=== PATIENT | male | born 1955 | race Caucasian/White ===

== ENCOUNTER 2016-11-07 15:38 | Emergency (ER) | payer BC, OTHER ==
[~2016-11-07] VITALS: Ht 182.9 cm; Wt 107.3 kg
[2016-11-07 15:38] VITALS: Ht 182.9 cm; Wt 107.3 kg
[~2016-11-07 15:38] MED LIST: TELM40TA4 PO
--- OUTSIDE RECORDS SUMMARY | 2016-11-07 15:43 | XMS REPORT | Continuity of Care Document ---
Author Author [facility] Organization [facility] Address Unknown Phone Unavailable Allergies Active Description Code Type Severity Reaction Onset Reported/Identified Relationship to Patient Clinical Status Yes No Known Medication Allergies NKMA N/A N/A 05/12/2014 Medications Problems Procedures Results Test Result Range Basic Metabolic Panel (BMP) - 11/02/16 13:37 Anion Gap 9 mEq/L 3-20 BUN 14 mg/dL 8-26 Calcium 9.5 mg/dL 8.4-10.2 Chloride 106 mEq/L 99-111 CO2 25 mEq/L 23-31 Creatinine 0.91 mg/dL 0.72-1.25 Glucose 95 mg/dL 70-99 Potassium 4.3 mEq/L 3.5-5.2 Sodium 140 mEq/L 135-144 eGFR - 11/02/16 13:37 eGFR >60 mL/min >60 Hemoglobin A1C - 11/02/16 13:37 Hemoglobin A1C 6.5 % 4.1-5.6 Estimated Average Glucose - 11/02/16 13:37 Estimated Average Glucose 139.9 mg/dL Albumin Random Urine - 11/02/16 14:36 Albumin Random Urine <0.5 mg/dL 0.0-1.7 Encounters ACCT No. Visit Date/Time Discharge Status Pt. Type Provider Facility Loc./Unit Complaint [id number] 04/22/2013 15:20:00 04/22/2013 23 :59:59 CLS Outpatient
--- OUTSIDE RECORDS SUMMARY | 2016-11-07 15:43 | XMS REPORT | Referral Summary ---
Author Author [facility] Organization [facility] Address Unknown Phone Unavailable Care Team Providers Care Glue Specialty Supervisor Name Role Phone Piotr Lincoln Primary Care Physician [phone] Encounter Date(s): 11/10/14 - 11/10/14 [facility] [address] [place] [address] JUSTIN Luciano [id number] Discharge Diagnosis: Prostatic nodule Discharge Diagnosis: Family history of prostate cancer Discharge Disposition: 01-Home or Self Care Attending Physician: Navneet Hussein JR, MD Admitting Physician: Navneet Hussein JR, MD Vital Signs Most recent to 1 oldest [Reference Range]: Peripheral Pulse 78 bpm Rate [60-100 bpm] (11/10/14 3:48 PM) Blood Pressure 126/82 mmHg [90-140/60-90 mmHg] (11/10/14 3:48 PM) SpO2 97 % (11/10/14 3:48 PM) Problem List Condition Effective Dates Status Health Status Informant Diabetes(Confirmed) Active Hypertension(Confirm Active ed) Measles(Confirmed) Active Mumps(Confirmed) Active Sugar in Active urine(Confirmed) Allergies, Adverse Reactions, Alerts No Known Medication Allergies Medications finasteride 5 mg oral tablet See Instructions, TAKE ONE TABLET BY MOUTH EVERY NIGHT AT BEDTIME, # 90 tabs, 2 Refill(s), eRx: [facility] #[id number], TAKE ONE TABLET BY MOUTH EVERY NIGHT AT BEDTIME Start Date: 06/16/14 Status: Ordered lisinopril 10 mg oral tablet See Instructions, TAKE ONE TABLET BY MOUTH DAILY, # 90 tabs, 2 Refill(s), eRx: [facility] #[id number], TAKE ONE TABLET BY MOUTH DAILY Start Date: 11/17/14 Status: Ordered metFORMIN 500 mg oral tablet See Instructions, TAKE ONE TABLET BY MOUTH TWICE A DAY NEEDS APPT PRIOR TO ADDITIONAL REFILLS, # 60 tabs, 0 Refill(s), Pharmacy: [facility] #[id number], TAKE ONE TABLET BY MOUTH TWICE A DAY; NEEDS APPT PRIOR TO ADDITIONAL REFILLS Start Date: 04/27/15 Status: Ordered Zocor 20 mg oral tablet See Instructions, TAKE ONE TABLET BY MOUTH EVERY NIGHT AT BEDTIME, # 90 tabs, 1 Refill(s), eRx: [facility] #[id number], TAKE ONE TABLET BY MOUTH EVERY NIGHT AT BEDTIME Start Date: 11/17/14 Status: Ordered Results No data available for this section Immunizations Vaccine Date Refusal Reason tetanus/diphth/pertuss (Tdap) adult/adol 09/25/07 Procedures Procedure Date Related Diagnosis Body Site Cystoscopy 08/19/09 Transneedle Biopsy of prostate 08/19/09 Colonoscopy with polypectomy1 11/08/07 1Repeat in 10 years Social History Social History Type Response Smoking Status Never smoker Assessment and Plan Extracted from: Title: Ambulatory Patient Education Author: Navneet Hussein JR, MD Date : 11/10/14 Follow Up With: Where: When: Claus Pinzonens [address] [place] [address] Drive; [place] [address] Business (1) Within 3 to 5 days Comments: Follow Up With: Where: When: Navneet Sanjay[address]; [place] [address] Business (1) In 6 months 05/13/2015 Comments: Extracted from: Title: Office Visit Note Author: Navneet Hussein JR, MD Date: 11/10/14 Assessment/Plan Prostatic nodule Pt advised of the new nodule in the prostate. Will continue observation. Father diagnosed with prostate cancer. Recheck in my office and since 6 months, PSA a week before next visit. Continue finasteride.. He may need prostate biopsy. He had many questions which I answered regarding his concerns over the nodule, family history etc. This was a 30 minute face to face visit with 1/2 of the visit devoted to counseling the patient. Ordered: Office Visit Level 4 Est 23043
--- OUTSIDE RECORDS SUMMARY | 2016-11-07 15:43 | XMS REPORT | Referral Summary ---
Author Author [facility] Organization [facility] Address Unknown Phone Unavailable Care Team Providers Care Project Administrative Assistant Name Role Phone Piotr Lincoln Primary Care Physician [phone] Encounter Date(s): 11/10/14 - 11/10/14 [facility] [address] [place] [address] JUSTIN Luciano [id number] Discharge Diagnosis: Prostatic nodule Discharge Diagnosis: Family [...] BEDTIME, # 90 tabs, 2 Refill(s), eRx: [facility] #[id number], TAKE ONE TABLET BY MOUTH EVERY NIGHT AT BEDTIME Start Date: 06/16/14 Status: Ordered lisinopril 10 mg oral tablet See Instructions, TAKE ONE TABLET BY MOUTH DAILY, # 90 tabs, 2 Refill(s), eRx: [facility] #[id number], TAKE ONE TABLET BY MOUTH DAILY Start Date: 11/17/14 Status: Ordered metFORMIN 500 mg oral tablet See Instructions, TAKE ONE TABLET BY MOUTH TWICE A DAY NEEDS APPT PRIOR TO ADDITIONAL REFILLS, # 60 tabs, 0 Refill(s), Pharmacy: [facility] #[id number], TAKE ONE TABLET BY MOUTH TWICE A DAY; NEEDS APPT PRIOR TO ADDITIONAL REFILLS Start Date: 04/27/15 Status: Ordered Zocor 20 mg oral tablet See Instructions, TAKE ONE TABLET BY MOUTH EVERY NIGHT AT BEDTIME, # 90 tabs, 1 Refill(s), eRx: [facility] #[id number], TAKE ONE TABLET BY MOUTH EVERY NIGHT [...] Follow Up With: Where: When: Claus Pinzonens [address] [place] [address] Drive; [place] [address] Business (1) Within 3 to 5 days Comments: Follow Up With: Where: When: Navneet Sanjay[address]; [place] [address] Business (1) In 6 months [...] patient. Ordered: Office Visit Level 4 Est 11053
--- OUTSIDE RECORDS SUMMARY | 2016-11-07 15:43 | XMS REPORT | Referral Summary ---
Author Author [facility] Organization [facility] Address Unknown Phone Unavailable Care Team Providers Care Linking Machine Operator Name Role Phone Piotr Lincoln Primary Care Physician [phone] Encounter [facility] [id number] Date(s): 08/04/15 - 08/04/15 [facility], [address] JUSTIN Luciano [id number] Discharge Disposition: 01-Home or Self Care Attending Physician: Claus Lincoln MD Admitting Physician: Claus Lincoln MD Vital Signs Most recent to 1 oldest [Reference Range]: Blood Pressure 124/76 mmHg [90-140/60-90 mmHg] (08/04/15 3:58 PM) Problem List Condition Effective Dates Status Health Status Informant Diabetes(Confirmed) Active Hypertension(Confirm Active ed) Measles(Confirmed) Active Mumps(Confirmed) Active Sugar in Active urine(Confirmed) Allergies, Adverse Reactions, Alerts No Known Medication Allergies Medications Aspir 81 81 mg, Oral, Daily, 0 Refill(s) Start Date: 08/04/15 Status: Ordered finasteride 5 mg oral tablet See Instructions, TAKE ONE TABLET BY MOUTH DAILY, # 30 tabs, eRx: [facility] #[id number], TAKE ONE TABLET BY MOUTH DAILY Start Date: 07/27/15 Status: Ordered Invokamet 50 mg-1000 mg oral tablet 1 tabs, Oral, BID, # 60 tabs, 0 Refill(s), [facility][id number] Start Date: 08/04/15 Status: Ordered lisinopril 10 mg oral tablet See Instructions, TAKE ONE TABLET BY MOUTH DAILY, # 90 tabs, 2 Refill(s), eRx: [facility] #[id number], TAKE ONE TABLET BY MOUTH DAILY Start Date: 11/17/14 Status: Ordered metFORMIN 500 mg oral tablet See Instructions, TAKE ONE TABLET BY MOUTH TWICE A DAY MUST CALL MD FOR APPOINTMENT FOR LABS, # 60 tabs, eRx: [facility] #[id number], TAKE ONE TABLET BY MOUTH TWICE A DAY MUST CALL MD FOR APPOINTMENT FOR LABS Start Date: 08/03/15 Status: Ordered simvastatin 20 mg oral tablet See Instructions, TAKE ONE TABLET BY MOUTH EVERY NIGHT AT BEDTIME MUST CALL MD FOR APPOINTMENT FOR FURTHER REFILLS, # 30 tabs, eRx: [facility] #[id number] , TAKE ONE TABLET BY MOUTH EVERY NIGHT AT BEDTIME MUST CALL MD FOR APPOINTMENT FOR FURTHER... Start Date: 07/27/15 Status: Ordered Results No data available for this section Immunizations Vaccine Date Refusal Reason tetanus/diphth/pertuss (Tdap) adult/adol 09/25/07 Procedures Procedure Date Related Diagnosis Body Site Cystoscopy 08/19/09 Transneedle Biopsy of prostate 08/19/09 Colonoscopy with polypectomy1 11/08/07 1Repeat in 10 years Social History Social History Type Response Smoking Status Never smoker Assessment and Plan Extracted from: Title: Ambulatory Patient Education Author: Claus Lincoln MD Date: 08/04 Family Medicine How to Avoid Diabetes Problems You can do a lot to prevent or slow down diabetes problems. Following your diabetes plan and taking care of yourself can reduce your risk of serious or life-threatening complications. Below, you will find certain things you can do to prevent diabetes problems. MANAGE YOUR DIABETES Follow your health care provider's, nurse educator's, and dietitian's instructions for managing your diabetes. They will teach you the basics of diabetes care. They can help answer questions you may have. Learn about diabetes and make healthy choices regarding eating and physical activity. Monitor your blood glucose level regularly. Your health care provider will help you decide how often to check your blood glucose level depending on your treatment goals and how well you are meeting them. DO NOT USE NICOTINE Nicotine and diabetes are a dangerous combination. Nicotine raises your risk for diabetes problems. If you quit using nicotine, you will lower your risk for heart attack, stroke, nerve disease, and kidney disease. Your cholesterol and your blood pressure levels may improve. Your blood circulation will also improve. Do not use any tobacco products, including cigarettes, chewing tobacco , or electronic cigarettes. If you need help quitting, ask your health care provider. KEEP YOUR BLOOD PRESSURE UNDER CONTROL Keeping your blood pressure under control will help prevent damage to your eyes , kidneys, heart, and blood vessels. Blood pressure consists of two numbers. The top number should be below 120, and the bottom number should be below 80 ( 120/80). Keep your blood pressure as close to these numbers as you can. If you already have kidney disease, you may want even lower blood pressure to protect your kidneys. Talk to your health care provider to make sure that your blood pressure goal is right for your needs. Meal planning, medicines, and exercise can help you reach your blood pressure target. Have your blood pressure checked at every visit with your health care provider. KEEP YOUR CHOLESTEROL UNDER CONTROL Normal cholesterol levels will help prevent heart disease and stroke. These are the biggest health problems for people with diabetes. Keeping cholesterol levels under control can also help with blood flow. Have your cholesterol level checked at least once a year. Your health care provider may prescribe a medicine known as a statin. Statins lower your cholesterol. If you are not taking a statin, ask your health care provider if you should be. Meal planning, exercise, and medicines can help you reach your cholesterol targets. SCHEDULE AND KEEP YOUR ANNUAL PHYSICAL EXAMS AND EYE EXAMS Your health care provider will tell you how often he or she wants to see you depending on your plan of treatment. It is important that you keep these appointments so that possible problems can be identified early and complications can be avoided or treated. Every visit with your health care provider should include your weight, blood pressure, and an evaluation of your blood glucose control. Your hemoglobin A1c should be checked: At least twice a year if you are at your goal. Every 3 months if there are changes in treatment. If you are not meeting your goals. Your blood lipids should be checked yearly. You should also be checked yearly to see if you have protein in your urine (microalbumin). Schedule a dilated eye exam within 5 years of your diagnosis if you have type 1 diabetes, and then yearly. Schedule a dilated eye exam at diagnosis if you have type 2 diabetes, and then yearly. All exams thereafter can be extended to every 2 to 3 years if one or more exams have been normal. KEEP YOUR VACCINES CURRENT The flu vaccine is recommended yearly. The formula for the vaccine changes every year and needs to be updated for the best protection against current viruses. It is recommended that people with diabetes who are over 65 years old get the pneumonia vaccine. In some cases, two separate shots may be given. Ask your health care provider if your pneumonia vaccination is up-to-date. However, there are some instances where another vaccine is recommended. Check with your health care provider. TAKE CARE OF YOUR FEET Diabetes may cause you to have a poor blood supply (circulation) to your legs and feet. Because of this, the skin may be thinner, break easier, and heal more slowly. You also may have nerve damage in your legs and feet, causing decreased feeling. You may not notice minor injuries to your feet that could lead to serious problems or infections. Taking care of your feet is very important. Visual foot exams are performed at every routine medical visit. The exams check for cuts, injuries, or other problems with the feet. A comprehensive foot exam should be done yearly. This includes visual inspection as well as assessing foot pulses and testing for loss of sensation. You should also do the following: Inspect your feet daily for cuts, calluses, blisters, ingrown toenails, and signs of infection, such as redness, swelling, or pus. Wash and dry your feet thoroughly, especially between the toes. Avoid soaking your feet regularly in hot water baths. Moisturize dry skin with lotion, avoiding areas between your toes. Cut toenails straight across and file the edges. Avoid shoes that do not fit well or have areas that irritate your skin. Avoid going barefooted or wearing only socks. Your feet need protection. TAKE CARE OF YOUR TEETH People with poorly controlled diabetes are more likely to have gum (periodontal ) disease. These infections make diabetes harder to control. Periodontal diseases, if left untreated, can lead to tooth loss. Noel your teeth twice a day, floss, and see your dentist for checkups and cleaning every 6 months, or 2 times a year. ASK YOUR HEALTH CARE PROVIDER ABOUT TAKING ASPIRIN Taking aspirin daily is recommended to help prevent cardiovascular disease in people with and without diabetes. Ask your health care provider if this would benefit you and what dose he or she would recommend. DRINK RESPONSIBLY Moderate amounts of alcohol (less than 1 drink per day for adult women and less than 2 drinks per day for adult men) have a minimal effect on blood glucose if ingested with food. It is important to eat food with alcohol to avoid hypoglycemia. People should avoid alcohol if they have a history of alcohol abuse or dependence, if they are , and if they have liver disease, pancreatitis, advanced neuropathy, or severe hypertriglyceridemia. LESSEN STRESS Living with diabetes can be stressful. When you are under stress, your blood glucose may be affected in two ways: Stress hormones may cause your blood glucose to rise. You may be distracted from taking good care of yourself. It is a good idea to be aware of your stress level and make changes that are necessary to help you better manage challenging situations. Support groups, planned relaxation, a hobby you enjoy, meditation, healthy relationships, and exercise all work to lower your stress level. If your efforts do not seem to be helping, get help from your health care provider or a trained mental health professional. Document Released: 03/06/2012 Document Revised: 11/03/2014 Document Reviewed: [employer] Patient Information 2015 [employer]. This information is not intended to replace advice given to you by your health care provider. Make sure you discuss any questions you have with your health care provider. Preventive Medicine Managing Your High Blood Pressure Blood pressure is a measurement of how forceful your blood is pressing against the nolasco of the arteries. Arteries are muscular tubes within the circulatory system. Blood pressure does not stay the same. Blood pressure rises when you are active, excited, or nervous; and it lowers during sleep and relaxation. If the numbers measuring your blood pressure stay above normal most of the time, you are at risk for health problems. High blood pressure (hypertension) is a long-term (chronic) condition in which blood pressure is elevated. A blood pressure reading is recorded as two numbers, such as 120 over 80 (or 120 /80). The first, higher number is called the systolic pressure. It is a measure of the pressure in your arteries as the heart beats. The second, lower number is called the diastolic pressure. It is a measure of the pressure in your arteries as the heart relaxes between beats. Keeping your blood pressure in a normal range is important to your overall health and prevention of health problems, such as heart disease and stroke. When your blood pressure is uncontrolled, your heart has to work harder than normal. High blood pressure is a very common condition in adults because blood pressure tends to rise with age. Men and women are equally likely to have hypertension but at different times in life. Before age 45, men are more likely to have hypertension. After 65 years of age, women are more likely to have it. Hypertension is especially common in Americans. This condition often has no signs or symptoms. The cause of the condition is usually not known. Your caregiver can help you come up with a plan to keep your blood pressure in a normal, healthy range. BLOOD PRESSURE STAGES Blood pressure is classified into four stages: normal, prehypertension, stage 1 , and stage 2. Your blood pressure reading will be used to determine what type of treatment, if any, is necessary. Appropriate treatment options are tied to these four stages: Normal Systolic pressure (mm Hg): below 120. Diastolic pressure (mm Hg): below 80. Prehypertension Systolic pressure (mm Hg): 120 to 139. Diastolic pressure (mm Hg): 80 to 89. Stage1 Systolic pressure (mm Hg): 140 to 159. Diastolic pressure (mm Hg): 90 to 99. Stage2 Systolic pressure (mm Hg): 160 or above. Diastolic pressure (mm Hg): 100 or above. RISKS RELATED TO HIGH BLOOD PRESSURE Managing your blood pressure is an important responsibility. Uncontrolled high blood pressure can lead to: A heart attack. A stroke. A weakened blood vessel (aneurysm). Heart failure. Kidney damage. Eye damage. Metabolic syndrome. Memory and concentration problems. HOW TO MANAGE YOUR BLOOD PRESSURE Blood pressure can be managed effectively with lifestyle changes and medicines ( if needed). Your caregiver will help you come up with a plan to bring your blood pressure within a normal range. Your plan should include the following: Education Read all information provided by your caregivers about how to control blood pressure. Educate yourself on the latest guidelines and treatment recommendations. New research is always being done to further define the risks and treatments for high blood pressure. Lifestylechanges Control your weight. Avoid smoking. Stay physically active. Reduce the amount of salt in your diet. Reduce stress. Control any chronic conditions, such as high cholesterol or diabetes. Reduce your alcohol intake. Medicines Several medicines (antihypertensive medicines) are available, if needed, to bring blood pressure within a normal range. Communication Review all the medicines you take with your caregiver because there may be side effects or interactions. Talk with your caregiver about your diet, exercise habits, and other lifestyle factors that may be contributing to high blood pressure. See your caregiver regularly. Your caregiver can help you create and adjust your plan for managing high blood pressure. RECOMMENDATIONS FOR TREATMENT AND FOLLOW-UP The following recommendations are based on current guidelines for managing high blood pressure in non adults. Use these recommendations to identify the proper follow-up period or treatment option based on your blood pressure reading. You can discuss these options with your caregiver. Systolic pressure of 120 to 139 or diastolic pressure of 80 to 89: Follow up with your caregiver as directed. Systolic pressure of 140 to 160 or diastolic pressure of 90 to 100: Follow up with your caregiver within 2 months. Systolic pressure above 160 or diastolic pressure above 100: Follow up with your caregiver within 1 month. Systolic pressure above 180 or diastolic pressure above 110: Consider antihypertensive therapy; follow up with your caregiver within 1 week. Systolic pressure above 200 or diastolic pressure above 120: Begin antihypertensive therapy; follow up with your caregiver within 1 week. Document Released: 03/13/2013 Document Reviewed: 03/13/2013 [facility] Patient Information 2015 [employer]. This information is not intended to replace advice given to you by your health care provider. Make sure you discuss any questions you have with your health care provider. No follow up information was provided. Extracted from: Title: Office Visit Note Author: Claus Lincoln MD Date: 08/04/15 Assessment/Plan Diabetes Would like to increase the metformin to 1000mg bid and will add Invokana 50mg bid. He is check blood sugar more frequent. Also patient informed of the adverse effects of the new medications. Ordered: Office Visit Level 4 Est 18964 Hypertension Continue with the current medications. Ordered: Office Visit Level 4 Est [id number] Orders: canagliflozin-metFORMIN, 1 tabs, Oral, BID, # 60 tabs, 0 Refill(s), Pharmacy: [facility] #[id number] Hyperlipidemia controlled and with a low HDL which we can use Niacin.
--- OUTSIDE RECORDS SUMMARY | 2016-11-07 15:43 | XMS REPORT | Referral Summary ---
Author Author [facility] Organization [facility] Address Unknown Phone Unavailable Care Team Providers Care Welfare Manager Name Role Phone Piotr Lincoln Primary Care Physician [phone] Encounter Date(s): 11/10/14 - 11/10/14 [facility] [address] [place] [address] JUSTIN Luciano [id number] Discharge Diagnosis: Prostatic nodule Discharge Diagnosis: [...] BEDTIME, # 90 tabs, 2 Refill(s), eRx: [facility] #[id number], TAKE ONE TABLET BY MOUTH EVERY NIGHT AT BEDTIME Start Date: 06/16/14 Status: Ordered lisinopril 10 mg oral tablet See Instructions, TAKE ONE TABLET BY MOUTH DAILY, # 90 tabs, 2 Refill(s), eRx: [facility] #[id number], TAKE ONE TABLET BY MOUTH DAILY Start Date: 11/17/14 Status: Ordered metFORMIN 500 mg oral tablet See Instructions, TAKE ONE TABLET BY MOUTH TWICE A DAY NEEDS APPT PRIOR TO ADDITIONAL REFILLS, # 60 tabs, 0 Refill(s), Pharmacy: [facility] #[id number], TAKE ONE TABLET BY MOUTH TWICE A DAY; NEEDS APPT PRIOR TO ADDITIONAL REFILLS Start Date: 04/27/15 Status: Ordered Zocor 20 mg oral tablet See Instructions, TAKE ONE TABLET BY MOUTH EVERY NIGHT AT BEDTIME, # 90 tabs, 1 Refill(s), eRx: [facility] #[id number], TAKE ONE TABLET BY MOUTH EVERY NIGHT [...] Follow Up With: Where: When: Claus Pinzonens [address] [place] [address] Drive; [place] [address] Business (1) Within 3 to 5 days Comments: Follow Up With: Where: When: Navneet Sanjay[address]; [place] [address] Business (1) In 6 months [...] patient. Ordered: Office Visit Level 4 Est 80013
--- OUTSIDE RECORDS SUMMARY | 2016-11-07 15:43 | XMS REPORT | Referral Summary ---
Author Organization Unknown Address Unknown Phone Unavailable Care Team Providers Care Cook Camp Name Role Phone Piotr Lincoln Primary Care Physician [phone] Encounter VC Date(s): 08/12/14 - 08/12/14 [facility] [place], Family [address] [place] [address]- Discharge Diagnosis: Hyperlipidemia Discharge Diagnosis: FAMILY HISTORY OF MALIGNANT NEOPLASM OF PROSTATE Discharge Diagnosis: Diabetes Discharge Diagnosis: Metatarsalgia Discharge Diagnosis: Hypertension Discharge Disposition: Home or Self Care Attending Physician: Claus Lincoln MD Admitting Physician: Claus Lincoln MD Vital Signs Most recent to 1 oldest [Reference Range]: Blood Pressure 126/82 mmHg [90-140/60-90 mmHg] (08/12/14 1:57 PM) Problem List Condition Effective Dates Status Health Status Informant Diabetes(Confirmed) Active Hypertension(Confirm Active ed) Measles(Confirmed) Active Mumps(Confirmed) Active Sugar in Active urine(Confirmed) Allergies, Adverse Reactions, Alerts No Known Medication Allergies Medications finasteride 5 mg oral tablet See Instructions, TAKE ONE TABLET BY MOUTH EVERY NIGHT AT BEDTIME, # 90 tabs, 2 Refill(s), eRx: [facility] #[id number], TAKE ONE TABLET BY MOUTH EVERY NIGHT AT BEDTIME Special Instructions: TAKE ONE TABLET BY MOUTH EVERY NIGHT AT BEDTIME Start Date: 06/16/14 Status: Ordered lisinopril 10 mg oral tablet See Instructions, TAKE ONE TABLET BY MOUTH EVERY DAY, # 90 tabs, 0 Refill(s), [facility] #[id number], TAKE ONE TABLET BY MOUTH EVERY DAY Special Instructions: TAKE ONE TABLET BY MOUTH EVERY DAY Start Date: 05/12/14 Status: Ordered metFORMIN 500 mg oral tablet See Instructions, TAKE ONE TABLET BY MOUTH TWICE A DAY, # 60 tabs, 1 Refill(s), [facility]Rx: [facility] #[id number], TAKE ONE TABLET BY MOUTH TWICE A DAY Special Instructions: TAKE ONE TABLET BY MOUTH TWICE A DAY Start Date: 06/09/14 Status: Ordered Zocor 20 mg oral tablet 1 tabs, Oral, Bedtime (once a day), # 90 tabs, 0 Refill(s), Pharmacy: [facility] #[id number], 1 tabs Oral Bedtime (once a day) Start Date: 05/12/14 Status: Ordered Results Chemistry Most recent to 1 oldest [Reference Range]: Sodium Lvl [135-144 140 mEq/L mEq/L] (08/12/14 3:27 PM) Potassium Lvl 3.9 mEq/L [3.5-5.2 mEq/L] (08/12/14 3:27 PM) Chloride [99-111 107 mEq/L mEq/L] (08/12/14 3:27 PM) CO2 [23-31 mEq/L] 23 mEq/L (08/12/14 3:27 PM) AGAP [3-20] 10 (08/12/14 3:27 PM) BUN [8-26 mg/dL] 12 mg/dL (08/12/14 3:27 PM) Glucose Lvl [70-99 126 mg/dL mg/dL] *HI* (08/12/14 3:27 PM) Creatinine Lvl 0.90 mg/dL [0.72-1.25 mg/dL] (08/12/14 3:27 PM) eGFR [>60 mL/min] >60 mL/min 1 (08/12/14 3:27 PM) Calcium Lvl 9.9 mg/dL [8.9-10.5 mg/dL] (08/12/14 3:27 PM) Uric Acid [3.5-7.2 5.7 mg/dL mg/dL] (08/12/14 3:27 PM) PSA (wihout Reflex 2.0 ng/mL 2 Free) [0.0-4.5 (08/12/14 3:27 PM) ng/mL] Chol [0-199 mg/dL] 130 mg/dL (08/12/14 3:27 PM) Trig [0-149 mg/dL] 100 mg/dL (08/12/14 3:27 PM) HDL [40-84 mg/dL] 29 mg/dL *LOW* (08/12/14 3:27 PM) LDL [0-130 mg/dL] 81 mg/dL (08/12/14 3:27 PM) VLDL Cholesterol 20 mg/dL [0-28 mg/dL] (08/12/14 3:27 PM) Cardiac Risk 4.5 [0.0-5.7] (08/12/14 3:27 PM) Hgb A1c [4.1-5.6 %] 6.9 % *HI* (08/12/14 3:27 PM) eAvg Glucose 151.3 mg/dL (08/12/14 3:27 PM) 1Result Comment: Multiply eGFR results by 1.21 for race. 2Result Comment: [facility] PSA Best Practice Guidelines: Age-Adjusted PSA Values by Ethnic Group Age Range Asians - Caucasians Americans 40-49 0-2.0 0-2.0 0-2.5 50-59 0-3.0 0-4.0 0-3.5 60-69 0-4.0 0-4.5 0-4.5 70-79 0-5.0 0-5.5 0-6.5 Immunizations Vaccine Date Refusal Reason tetanus/diphth/pertuss (Tdap) adult/adol 09/25/07 Procedures Procedure Date Related Diagnosis Body Site Cystoscopy 08/19/09 Transneedle Biopsy of prostate 08/19/09 Colonoscopy with polypectomy1 11/08/07 1Repeat in 10 years Social History Social History Type Response Smoking Status Never smoker Assessment and Plan No data available for this section
--- OUTSIDE RECORDS SUMMARY | 2016-11-07 15:43 | XMS REPORT | Referral Summary ---
Author Author [facility] Organization [facility] Address Unknown Phone Unavailable Care Team Providers Care Ordnance Truck Installation Supervisor Name Role Phone Piotr Lincoln Primary Care Physician [phone] Encounter [facility] [id number] Date(s): 05/14/15 - 05/14/15 [facility] [address] [place] [address] JUSTIN Luciano [id number] Discharge Diagnosis: Prostatic nodule Discharge Diagnosis: BPH with obstruction/lower urinary tract symptoms Discharge Disposition: 01-Home or Self Care Attending Physician: Navneet Hussein JR, MD Admitting Physician: Navneet Hussein JR, MD Referring Physician: Claus Lincoln MD Vital Signs Most recent to 1 oldest [Reference Range]: Peripheral Pulse 83 bpm Rate [60-100 bpm] (05/14/15 2:59 PM) Blood Pressure 108/62 mmHg [90-140/60-90 mmHg] (05/14/15 2:59 PM) Problem List Condition Effective Dates Status Health Status Informant Diabetes(Confirmed) Active Hypertension(Confirm Active ed) Measles(Confirmed) Active Mumps(Confirmed) Active Sugar in Active urine(Confirmed) Allergies, Adverse Reactions, Alerts No Known Medication Allergies Medications finasteride 5 mg oral tablet See Instructions, TAKE ONE TABLET BY MOUTH DAILY, # 30 tabs, eRx: [facility] #[id number], TAKE ONE TABLET BY MOUTH DAILY Start Date: 05/12/15 Status: Ordered lisinopril 10 mg oral tablet See Instructions, TAKE ONE TABLET BY MOUTH DAILY, # 90 tabs, 2 Refill(s), eRx: [facility] #[id number], TAKE ONE TABLET BY MOUTH DAILY Start Date: 11/17/14 Status: Ordered metFORMIN 500 mg oral tablet See Instructions, TAKE ONE TABLET BY MOUTH TWICE A DAY NEEDS APPT PRIOR TO ADDITIONAL REFILLS, # 60 tabs, 0 Refill(s), Pharmacy: [facility] #[id number], TAKE ONE TABLET BY MOUTH TWICE A DAY; NEEDS APPT PRIOR TO ADDITIONAL REFILLS Start Date: 04/27/15 Status: Ordered Zocor 20 mg oral tablet See Instructions, TAKE ONE TABLET BY MOUTH EVERY NIGHT AT BEDTIME, # 90 tabs, 1 Refill(s), eRx: [facility] #[id number], TAKE ONE TABLET BY MOUTH EVERY NIGHT AT BEDTIME Start Date: 11/17/14 Status: Ordered Results Chemistry Most recent to 1 oldest [Reference Range]: PSA (wihout Reflex 1.8 ng/mL 1 Free) [0.0-4.5 (05/14/15 2:50 PM) ng/mL] 1Result Comment: [facility] PSA Best Practice Guidelines: Age-Adjusted PSA Values by Ethnic Group Age Range Asians - Caucasians Americans 40-49 0-2.0 0-2.0 0-2.5 50-59 0-3.0 0-4.0 0-3.5 60-69 0-4.0 0-4.5 0-4.5 70-79 0-5.0 0-5.5 0-6.5 Immunizations Vaccine Date Refusal Reason tetanus/diphth/pertuss (Tdap) adult/adol 09/25/07 Procedures Procedure Date Related Diagnosis Body Site Collection of venous blood by venipuncture 05/14/15 Cystoscopy 08/19/09 Transneedle Biopsy of prostate 08/19/09 Colonoscopy with polypectomy1 11/08/07 1Repeat in 10 years Social History Social History Type Response Smoking Status Never smoker Assessment and Plan Extracted from: Title: Ambulatory Patient Education Author: Navneet Hussein JR, MD Date : 05/14/15 Follow Up With: Where: When: Claus Lincoln [address] [place] [address] Drive; [place] [address] Business (1) Within 3 to 5 days Comments: Follow Up With: Where: When: Navneet Hussein [address] [place] [address] Drive; [place] [address] Business (1) In 1 month 06/13/2015 Comments: Extracted from: Title: Office Visit Note Author: Navneet Hussein JR, MD Date: 05/14/15 Assessment/Plan 1.BPH with obstruction/lower urinary tract symptoms continue finasteride Prostatic nodule the prostatic nodule had not changed when I examine him 6 months ago. He had a PSA done today I don't have that report yet. If the PSA is rising he is going to be needing a prostate biopsy. Ordered: Office Visit Level 3 Est 31533
--- OUTSIDE RECORDS SUMMARY | 2016-11-07 15:43 | XMS REPORT | Continuity of Care Document ---
Author Author Bubba Churchill MA, [facility] Address Unknown Phone Unavailable Care Team Providers Care Flight Control Specialist Name Role Phone LincolnClaus PP Unavailable Payers Payer name Insurance type Covered alliance party ID Authorization(s) Unknown Problems Condition Effective Dates (start - stop) Clinical Status HYPERTROPHY (BENIGN) OF PROSTATE WITH URINARY OBSTRUCTION - * Chronic Routine Medical Exam - *Routine Other and unspecified hyperlipidemia - *Chronic Family History Family Member Diagnosis Age At Onset Status Unknown Social History Social History Element Description Quantity Unknown Allergies, Adverse Reactions, Alerts Substance Reaction Severity Status Unknown Medications Medication Instructions Dosage Effective Dates (start - stop) Status finasteride 5 mg tablet Take 1 tablet by mouth at bedtime. - Active Zocor 20 mg tablet Take 1 tablet by mouth at bedtime. - Active lisinopril 10 mg tablet Take 1 tablet by mouth every day. - Active Immunizations Vaccine Date Status Comments Unknown Results Test Name Date and Time Measure Units Reference Range Abnormal Flag Comments Panel Description: Prostatic Specific Antigen-[facility] PSA 15:38:00 2.6 ng/mL 0.0-3.5 [facility] PSA Best Practice Guidelines: Age-Adjusted PSA Values by Ethnic GroupAge Range Asians - Caucasians [id number] 0-2.0 0-2.0 0-2.550-59 0-3.0 0-4.0 0-3.560-69 0-4.0 0-4.5 0-4.570-79 0-5.0 0-5.5 0-6.5Testing performed at [facility] Reference Lab [address] [facility] [address] Graduate Nurse Daniele Ramos MD Vital Signs Date / Time: Height Weight Pulse Rate Blood Pressure Temperature /15:21:00 72.60 in 243.00 lbs 60 /min 128/80 mm[Hg] Procedures Procedure Date Unknown Encounters Encounter Location Date Patient Visit [facility] Patient Visit [facility] Advance Directives Directive Effective Date Unknown
--- OUTSIDE RECORDS SUMMARY | 2016-11-07 15:43 | XMS REPORT | Referral Summary ---
Author Author [facility] Organization [facility] Address Unknown Phone Unavailable Care Team Providers Care Slot Machine Mechanic Name Role Phone Piotr Lincoln Primary Care Physician [phone] Encounter Date(s): 11/10/14 - 11/10/14 [facility] [address] [place] [address] JUSTIN Luciano [id number] Discharge Diagnosis: Prostatic nodule Discharge Diagnosis: [...] BY MOUTH DAILY, # 30 tabs, eRx: [facility] #[id number], TAKE ONE TABLET BY MOUTH DAILY Start Date: 05/12/15 Status: Ordered lisinopril 10 mg oral tablet See Instructions, TAKE ONE TABLET BY MOUTH DAILY, # 90 tabs, 2 Refill(s), eRx: [facility] #[id number], TAKE ONE TABLET BY MOUTH DAILY Start Date: 11/17/14 Status: Ordered metFORMIN 500 mg oral tablet See Instructions, TAKE ONE TABLET BY MOUTH TWICE A DAY NEEDS APPT PRIOR TO ADDITIONAL REFILLS, # 60 tabs, 0 Refill(s), Pharmacy: [facility] #[id number], TAKE ONE TABLET BY MOUTH TWICE A DAY; NEEDS APPT PRIOR TO ADDITIONAL REFILLS Start Date: 04/27/15 Status: Ordered Zocor 20 mg oral tablet See Instructions, TAKE ONE TABLET BY MOUTH EVERY NIGHT AT BEDTIME, # 90 tabs, 1 Refill(s), eRx: [facility] #[id number], TAKE ONE TABLET BY MOUTH EVERY NIGHT [...] 11/10/14 Follow Up With: Where: When: Claus Lincoln [address] [place] [address] Drive; [place] [address] [employer] (1) Within 3 to 5 days Comments: Follow Up With: Where: When: Navneet Kessler[address]; [place] [address] [employer] In 6 months 05/13/2015 Comments: Extracted from: [...] patient. Ordered: Office Visit Level 4 Est 05051
--- OUTSIDE RECORDS SUMMARY | 2016-11-07 15:43 | XMS REPORT | Referral Summary ---
Author Author [facility] Organization [facility] Address Unknown Phone Unavailable Care Team Providers Care Brusher Warp Name Role Phone Piotr Lincoln Primary Care Physician [phone] Encounter Date(s): 11/10/14 - 11/10/14 [facility] [address] [place] [address] JUSTIN Luciano [id number] Discharge Diagnosis: Prostatic nodule [...] BEDTIME, # 90 tabs, 2 Refill(s), eRx: [facility] #[id number], TAKE ONE TABLET BY MOUTH EVERY NIGHT AT BEDTIME Start Date: 06/16/14 Status: Ordered lisinopril 10 mg oral tablet See Instructions, TAKE ONE TABLET BY MOUTH DAILY, # 90 tabs, 2 Refill(s), [facility]Rx: [facility] #[id number], TAKE ONE TABLET BY MOUTH DAILY Start Date: 11/17/14 Status: Ordered metFORMIN 500 mg oral tablet See Instructions, TAKE ONE TABLET BY MOUTH TWICE A DAY NEEDS APPT PRIOR TO ADDITIONAL REFILLS, # 60 tabs, 0 Refill(s), Pharmacy: [facility] #[id number], TAKE ONE TABLET BY MOUTH TWICE A DAY; NEEDS APPT PRIOR TO ADDITIONAL REFILLS Start Date: 04/27/15 Status: Ordered Zocor 20 mg oral tablet See Instructions, TAKE ONE TABLET BY MOUTH EVERY NIGHT AT BEDTIME, # 90 tabs, 1 Refill(s), eRx: [facility] #[id number], TAKE ONE TABLET BY MOUTH EVERY NIGHT [...] Follow Up With: Where: When: Claus Pinzonens [address] [place] [address] Drive; [place] [address] Business (1) Within 3 to 5 days Comments: Follow Up With: Where: When: Navneet Sanjay[address]; [place] [address] Business (1) In 6 months 05/13/2015 Comments: Extracted from: Title: Office Visit Note Author: Nvaneet Hussein JR, MD Date: 11/10/14 Assessment/Plan Prostatic [...] patient. Ordered: Office Visit Level 4 Est 00827
--- OUTSIDE RECORDS SUMMARY | 2016-11-07 15:43 | XMS REPORT | Referral Summary ---
Author Author [facility] Organization [facility] Address Unknown Phone Unavailable Care Team Providers Care Product Design Specialist Name Role Phone Piotr Lincoln Primary Care Physician [phone] Encounter Date(s): 11/10/14 - 11/10/14 [facility] [address] [place] [address] JUSTIN Luciano [id number] Discharge Diagnosis: Prostatic nodule Discharge Diagnosis: [...] BEDTIME, # 90 tabs, 2 Refill(s), eRx: [facility] #[id number], TAKE ONE TABLET BY MOUTH EVERY NIGHT AT BEDTIME Start Date: 06/16/14 Status: Ordered lisinopril 10 mg oral tablet See Instructions, TAKE ONE TABLET BY MOUTH DAILY, # 90 tabs, 2 Refill(s), eRx: [facility] #[id number], TAKE ONE TABLET BY MOUTH DAILY Start Date: 11/17/14 Status: Ordered metFORMIN 500 mg oral tablet See Instructions, TAKE ONE TABLET BY MOUTH TWICE A DAY NEEDS APPT PRIOR TO ADDITIONAL REFILLS, # 60 tabs, 0 Refill(s), Pharmacy: [facility] #[id number], TAKE ONE TABLET BY MOUTH TWICE A DAY; NEEDS APPT PRIOR TO ADDITIONAL REFILLS Start Date: 04/27/15 Status: Ordered Zocor 20 mg oral tablet See Instructions, TAKE ONE TABLET BY MOUTH EVERY NIGHT AT BEDTIME, # 90 tabs, 1 Refill(s), eRx: [facility] #[id number], TAKE ONE TABLET BY MOUTH EVERY NIGHT [...] Follow Up With: Where: When: Claus Pinzonens [address] [place] [address] Drive; [place] [address] Business (1) Within 3 to 5 days Comments: Follow Up With: Where: When: Navneet Sanjay[address]; [place] [address] Business (1) In 6 months [...] patient. Ordered: Office Visit Level 4 Est 303[address]
--- OUTSIDE RECORDS SUMMARY | 2016-11-07 15:43 | XMS REPORT | Referral Summary ---
Author Author [facility] Organization [facility] Address Unknown Phone Unavailable Care Team Providers Care Paperboard Boxes Estimator Name Role Phone Piotr Lincoln Primary Care Physician [phone] Encounter VC Date(s): 04/20/16 - 04/20/16 [facility], [address] [place] [id number] Discharge Diagnosis: Encounter for prostate cancer screening Discharge Diagnosis: High blood cholesterol Discharge Diagnosis: Diabetes Discharge Diagnosis: Hypertension Discharge Disposition: 01-Home or Self Care Attending Physician: Claus Lincoln MD Admitting Physician: Claus Lincoln MD Vital Signs Most recent to 1 oldest [Reference Range]: Peripheral Pulse 73 bpm Rate [60-100 bpm] (04/20/16 8:36 AM) Blood Pressure 106/72 mmHg [90-140/60-90 mmHg] (04/20/16 8:36 AM) SpO2 93 % (04/20/16 8:36 AM) Problem List Condition Effective Dates Status Health Status Informant Diabetes(Confirmed) Active High blood Active cholesterol(Confirme d) Hypertension(Confirm Active ed) Measles(Confirmed) Active Mumps(Confirmed) Active Encounter for Active prostate cancer screening(Confirmed) Sugar in Active urine(Confirmed) Allergies, Adverse Reactions, Alerts No Known Medication Allergies Medications Aspir 81 81 mg, Oral, Daily, 0 Refill(s) Start Date: 08/04/15 Status: Ordered finasteride 5 mg oral tablet See Instructions, TAKE ONE TABLET BY MOUTH DAILY, # 30 tabs, 2 Refill(s), eRx: [facility] #[id number], TAKE ONE TABLET BY MOUTH DAILY Start Date: 03/05/16 Status: Ordered lisinopril 10 mg oral tablet See Instructions, TAKE ONE TABLET BY MOUTH DAILY, # 90 tabs, eRx: [facility] #[id number], TAKE ONE TABLET BY MOUTH DAILY Start Date: 03/05/16 Status: Ordered metFORMIN 500 mg oral tablet 500 mg 1 tabs, Oral, BID, must keep appt for further refills., # 60 tabs, 0 Refill(s), Pharmacy: [facility] #[id number], 1 tabs Oral BID,Instr:must keep appt for further refills. Start Date: 04/13/16 Status: Ordered simvastatin 20 mg oral tablet See Instructions, TAKE ONE TABLET BY MOUTH EVERY NIGHT AT BEDTIME *NEED TO MAKE APPOINTMENT*, # 30 tabs, 2 Refill(s), eRx: [facility] #[id number], TAKE ONE TABLET BY MOUTH EVERY NIGHT AT BEDTIME *NEED TO MAKE APPOINTMENT* Start Date: 03/05/16 Status: Ordered Results No data available for [...] Patient Education Author: Claus Lincoln MD Date: Health and Wellness Diabetes and Standards of Medical Care Diabetes is complicated. You may find that your diabetes team includes a dietitian, nurse, museum educator, eye doctor, and more. To help everyone know what is going on and to help you get the care you deserve, the following schedule of care was developed to help keep you on track. Below are the tests, exams, vaccines, medicines, education, and plans you will need. HbA1c test This test shows how well you have controlled your glucose over the past 23 months. It is used to see if your diabetes management plan needs to be adjusted. It is performed at least 2 times a year if you are meeting treatment goals. It is performed 4 times a year if therapy has changed or if you are not meeting treatment goals. Blood pressure test This test is performed at every routine medical visit. The goal is less than 140/90 mm Hg for most people, but 130/80 mm Hg in some cases. Ask your health care provider about your goal. Dental exam Follow up with the dentist regularly. Eye exam If you are diagnosed with type 1 diabetes as a child, get an exam upon reaching the age of 10 years or older and having had diabetes for 35 years. Yearly eye exams are recommended after that initial eye exam. If you are diagnosed with type 1 diabetes as an adult, get an exam within 5 years of diagnosis and then yearly. If you are diagnosed with type 2 diabetes, get an exam as soon as possible after the diagnosis and then yearly. Foot care exam Visual foot exams are performed at every routine medical visit. The exams check for cuts, injuries, or other problems with the feet. You should have a complete foot exam performed every year. This exam includes an inspection of the structure and skin of your feet, a check of the pulses in your feet, and a check of the sensation in your feet. Type 1 diabetes: The first exam is performed 5 years after diagnosis. Type 2 diabetes: The first exam is performed at the time of diagnosis. Check your feet nightly for cuts, injuries, or other problems with your feet. Tell your health care provider if anything is not healing. Kidney function test (urine microalbumin) This test is performed once a year. Type 1 diabetes: The first test is performed 5 years after diagnosis. Type 2 diabetes: The first test is performed at the time of diagnosis. A serum creatinine and estimated glomerular filtration rate (eGFR) test is done once a year to assess the level of chronic kidney disease (CKD), if present. Lipid profile (cholesterol, HDL, LDL, triglycerides) Performed every 5 years for most people. The goal for LDL is less than 100 mg/dL. If you are at high risk, the goal is less than 70 mg/dL. The goal for HDL is 40 mg/dL50 mg/dL for men and 50 mg/dL60 mg/dL for women. An HDL cholesterol of 60 mg/dL or higher gives some protection against heart disease. The goal for triglycerides is less than 150 mg/dL. Immunizations The flu (influenza) vaccine is recommended yearly for every person 6 months of age or older who has diabetes. The pneumonia (pneumococcal) vaccine is recommended for every person 2 years of age or older who has diabetes. Adults 65 years of age or older may receive the pneumonia vaccine as a series of two separate shots. The hepatitis B vaccine is recommended for adults shortly after they have been diagnosed with diabetes. The Tdap (tetanus, diphtheria, and pertussis) vaccine should be given: According to normal childhood vaccination schedules, for children. Every 10 years, for adults who have diabetes. Diabetes self-management education Education is recommended at diagnosis and ongoing as needed. Treatment plan Your treatment plan is reviewed at every medical visit. This information is not intended to replace advice given to you by your health care provider. Make sure you discuss any questions you have with your health care provider. Document Released: 04/16/2010 Document Revised: 07/10/2015 Document Reviewed: [employer] Patient Education 2016 [employer]. Physical Medicine and Rehabilitation Diabetes and Exercise Diabetes mellitus is a common, chronic disease, in which the pancreas is unable to adequately control blood glucose (sugar) levels. There are 2 types of diabetes. Type 1 diabetes patients are unable to produce insulin, a hormone that causes sugar in the blood to be stored in the body. People with type 1 diabetes may compensate by giving themselves injections of insulin. Type 2 diabetes involves not producing adequate amounts of insulin to control blood glucose levels. People with type 2 diabetes control their blood glucose by monitoring their food intake or by taking medicine. Exercise is an important part of diabetes treatment. During exercise, the muscles use a greater amount of glucose from the blood for energy. This lowers your blood glucose, which is the same effect you would get from taking insulin. It has been shown that endurance athletes are more sensitive to insulin than inactive people. SYMPTOMS Many people with a mild case of diabetes have no symptoms. However, if left uncontrolled, diabetes can lead to several complications that could be prevented with treatment of the disease. General symptoms of diabetes include: Frequent urination (polyuria). Frequent thirst and drinking (polydipsia). Increased food consumption (polyphagia). Fatigue. Poor exercise performance. Blurred vision. Inflammation of the vagina (vaginitis) caused by fungal infections. Skin infections (uncommon). Numbness in the feet, caused by nerve injury. Kidney disease. CAUSES The cause of most cases of diabetes is unknown. In children, diabetes is often due to an autoimmune response to the cells in the pancreas that make insulin. It is also linked with other diseases, such as cystic fibrosis. Diabetes may have a genetic link. PREVENTION Athletes should strive to begin exercise with blood glucose in a well- controlled state. Feet should always be kept clean and dry. Activities in which low blood sugar levels cannot be treated easily ( scuba diving, rock climbing, swimming) should be avoided. Anticipate alterations in diet or training to avoid low blood sugar ( hypoglycemia) and high blood sugar (hyperglycemia). Athletes should try to increase sugar consumption after strenuous exercise to avoid hypoglycemia. Short-acting insulin should not be injected into an actively exercising muscle. The athlete should rest the injection site for about 1 hour after exercise. Patients with diabetes should get routine checkups of the feet to prevent complications. PROGNOSIS Exercise provides many benefits to the person with diabetes: Reduced body fat. Lower blood pressure. Often, reduced need for medicines. Improved exercise tolerance. Lower insulin levels. Weight loss. Improved lipid profile (decreased cholesterol and low-density lipoproteins). RELATED COMPLICATIONS If performed incorrectly, exercise can result in complications of diabetes: Poor control of blood sugar, when exercise is performed at the wrong time. Increase in renal disease, from loss of body fluids (dehydration). Increased risk of nerve injury (neuropathy) when performing exercises that increase foot injury. Increased risk of eye problems when performing activities that involve breath holding or lowering or jarring the head. Increased risk of sudden from exercise in patients with heart disease. Worsening of hypertension with heavy lifting (more than 10 lb/4.5 kg). Altered blood glucose and insulin dose as a result of mild illness that produces loss of appetite. Altered uptake of insulin after injection when insulin injection site is changed. NOTE: Exercise can lower blood glucose effectively, but the effects are short- lasting (no more than a couple of days). Exercise has been shown to improve your sensitivity to insulin. This may alter how your body responds to a given dose of injected insulin. It is important for every patient with diabetes to know how his or her body may react to exercise, and to adjust insulin dosages accordingly. TREATMENT Eat about 1 to 3 hours before exercise. Check blood glucose immediately before and after exercise. Stop exercise if blood glucose is more than 250 mg/dL. Stop exercise if blood glucose is less than 100 mg/dL. Do not exercise within 1 hour of an insulin injection. Be prepared to treat low blood glucose while exercising. Keep some sugar product with you, such as a candy bar. For prolonged exercise, use a sports drink to maintain your glucose level. Replace used-up glucose in the body after exercise. Consume fluids during and after exercise to avoid dehydration. SEEK MEDICAL CARE IF: You have vision changes after a run. You notice a loss of sensation in your feet after exercise. You have increased numbness, tingling, or pins and needles sensations after exercise. You have chest pain during or after exercise. You have a fast, irregular heartbeat (palpitations) during or after exercise. Your exercise tolerance gets worse. You have fainting or dizzy spells for brief periods during or after exercise. This information is not intended to replace advice given to you by your health care provider. Make sure you discuss any questions you have with your health care provider. Document Released: 06/19/2006 Document Revised: 07/10/2015 Document Reviewed: [employer] Patient Education 2016 [employer]. Preventive Medicine Blood Glucose Monitoring, Adult Monitoring your blood glucose (also know as blood sugar) helps you to manage your diabetes. It also helps you and your health care provider monitor your diabetes and determine how well your treatment plan is working. WHY SHOULD YOU MONITOR YOUR BLOOD GLUCOSE? It can help you understand how food, exercise, and medicine affect your blood glucose. It allows you to know what your blood glucose is at any given moment. You can quickly tell if you are having low blood glucose (hypoglycemia) or high blood glucose (hyperglycemia). It can help you and your health care provider know how to adjust your medicines. It can help you understand how to manage an illness or adjust medicine for exercise. WHEN SHOULD YOU TEST? Your health care provider will help you decide how often you should check your blood glucose. This may depend on the type of diabetes you have, your diabetes control, or the types of medicines you are taking. Be sure to write down all of your blood glucose readings so that this information can be reviewed with your health care provider. See below for examples of testing times that your health care provider may suggest. Type 1 Diabetes Test at least 2 times per day if your diabetes is well controlled, if you are using an insulin pump, or if you perform multiple daily injections. If your diabetes is not well controlled or if you are sick, you may need to test more often. It is a good idea to also test: Before every insulin injection. Before and after exercise. Between meals and 2 hours after a meal. Occasionally between 2:00 a.m. and 3:00 a.m. Type 2 Diabetes If you are taking insulin, test at least 2 times per day. However, it is best to test before every insulin injection. If you take medicines by mouth (orally), test 2 times a day. If you are on a controlled diet, test once a day. If your diabetes is not well controlled or if you are sick, you may need to monitor more often. HOW TO MONITOR YOUR BLOOD GLUCOSE Supplies Needed Blood glucose meter. Test strips for your meter. Each meter has its own strips. You must use the strips that go with your own meter. A pricking needle (lancet). A device that holds the lancet (lancing device). A journal or log book to write down your results. Procedure Wash your hands with soap and water. Alcohol is not preferred. Prick the side of your finger (not the tip) with the lancet. Gently milk the finger until a small drop of blood appears. Follow the instructions that come with your meter for inserting the test strip, applying blood to the strip, and using your blood glucose meter. Other Areas to Get Blood for Testing Some meters allow you to use other areas of your body (other than your finger) to test your blood. These areas are called alternative sites. The most common alternative sites are: The forearm. The thigh. The back area of the lower leg. The palm of the hand. The blood flow in these areas is slower. Therefore, the blood glucose values you get may be delayed, and the numbers are different from what you would get from your fingers. Do not use alternative sites if you think you are having hypoglycemia. Your reading will not be accurate. Always use a finger if you are having hypoglycemia. Also, if you cannot feel your lows (hypoglycemia unawareness), always use your fingers for your blood glucose checks. ADDITIONAL TIPS FOR GLUCOSE MONITORING Do not reuse lancets. Always carry your supplies with you. All blood glucose meters have a 24-hour "hotline" number to call if you have questions or need help. Adjust (calibrate) your blood glucose meter with a control solution after finishing a few boxes of strips. BLOOD GLUCOSE RECORD KEEPING It is a good idea to keep a daily record or log of your blood glucose readings. Most glucose meters, if not all, keep your glucose records stored in the meter. Some meters come with the ability to download your records to your home computer. Keeping a record of your blood glucose readings is especially helpful if you are wanting to look for patterns. Make notes to go along with the blood glucose readings because you might forget what happened at that exact time. Keeping good records helps you and your health care provider to work together to achieve good diabetes management. This information is not intended to replace advice given to you by your health care provider. Make sure you discuss any questions you have with your health care provider. Document Released: 06/21/2004 Document Revised: 07/10/2015 Document Reviewed: [employer] Interactive Patient Education 2016 [employer]. Diabetes and Foot Care Diabetes may cause you to have problems because of poor blood supply ( circulation) to your feet and legs. This may cause the skin on your feet to become thinner, break easier, and heal more slowly. Your skin may become dry, and the skin may peel and crack. You may also have nerve damage in your legs and feet causing decreased feeling in them. You may not notice minor injuries to your feet that could lead to infections or more serious problems. Taking care of your feet is one of the most important things you can do for yourself. HOME CARE INSTRUCTIONS Wear shoes at all times, even in the house. Do not go barefoot. Bare feet are easily injured. Check your feet daily for blisters, cuts, and redness. If you cannot see the bottom of your feet, use a mirror or ask someone for help. Wash your feet with warm water (do not use hot water) and mild soap. Then pat your feet and the areas between your toes until they are completely dry. Do not soak your feet as this can dry your skin. Apply a moisturizing lotion or petroleum jelly (that does not contain alcohol and is unscented) to the skin on your feet and to dry, brittle toenails. Do not apply lotion between your toes. Trim your toenails straight across. Do not dig under them or around the cuticle. File the edges of your nails with an emery board or nail file. Do not cut corns or calluses or try to remove them with medicine. Wear clean socks or stockings every day. Make sure they are not too tight. Do not wear knee-high stockings since they may decrease blood flow to your legs. Wear shoes that fit properly and have enough cushioning. To break in new shoes, wear them for just a few hours a day. This prevents you from injuring your feet. Always look in your shoes before you put them on to be sure there are no objects inside. Do not cross your legs. This may decrease the blood flow to your feet. If you find a minor scrape, cut, or break in the skin on your feet, keep it and the skin around it clean and dry. These areas may be cleansed with mild soap and water. Do not cleanse the area with peroxide, alcohol, or iodine. When you remove an adhesive bandage, be sure not to damage the skin around it. If you have a wound, look at it several times a day to make sure it is healing. Do not use heating pads or hot water bottles. They may burn your skin. If you have lost feeling in your feet or legs, you may not know it is happening until it is too late. Make sure your health care provider performs a complete foot exam at least annually or more often if you have foot problems. Report any cuts, sores, or bruises to your health care provider immediately. SEEK MEDICAL CARE IF: You have an injury that is not healing. You have cuts or breaks in the skin. You have an ingrown nail. You notice redness on your legs or feet. You feel burning or tingling in your legs or feet. You have pain or cramps in your legs and feet. Your legs or feet are numb. Your feet always feel cold. SEEK IMMEDIATE MEDICAL CARE IF: There is increasing redness, swelling, or pain in or around a wound. There is a red line that goes up your leg. Pus is coming from a wound. You develop a fever or as directed by your health care provider. You notice a bad smell coming from an ulcer or wound. This information is not intended to replace advice given to you by your health care provider. Make sure you discuss any questions you have with your health care provider. Document Released: 06/16/2001 Document Revised: 02/19/2014 Document Reviewed: [employer] Interactive Patient Education 2016 [employer] No follow up information was provided. Extracted from: Title: Office Visit Note Author: Claus Lincoln MD Date: 04/20/16 Assessment/Plan Diabetes Would encourage to check blood sugars more often. Watching diet and exercising. He has lost some weight. Follow up in 3 months. Ordered: Hemoglobin A1c Periodic Comp Preventive Med 40 to 64 years Est 76727 Encounter for prostate cancer screening Checking a PSA Ordered: Periodic Comp Preventive Med 40 to 64 years Est 64060 Prostate Specific Antigen High blood cholesterol Continue with the current medications. Ordered: Lipid Panel Periodic Comp Preventive Med 40 to 64 years Est 52013 Hypertension No change in treatment Ordered: Comprehensive Metabolic Panel Periodic Comp Preventive Med 40 to 64 years Est 16980
--- NOTE | 2016-11-07 15:44 | NUR ---
PROVIDER DR CALDWELL IN ROOM W/ PT.
--- OUTSIDE RECORDS SUMMARY | 2016-11-07 15:44 | XMS REPORT | Referral Summary ---
Author Author [facility] Organization [facility] Address Unknown Phone Unavailable Care Team Providers Care Logistics Specialist Name Role Phone Piotr Lincoln Primary Care Physician [phone] Encounter Date(s): 11/10/14 - 11/10/14 [facility] [address] [place] [address] [place] [id number] Discharge Diagnosis: Prostatic nodule Discharge Diagnosis: Family [...] BEDTIME, # 90 tabs, 2 Refill(s), eRx: [facility] #[id number], TAKE ONE TABLET BY MOUTH EVERY NIGHT AT BEDTIME Start Date: 06/16/14 Status: Ordered lisinopril 10 mg oral tablet See Instructions, TAKE ONE TABLET BY MOUTH DAILY, # 90 tabs, 2 Refill(s), eRx: [facility] #[id number], TAKE ONE TABLET BY MOUTH DAILY Start Date: 11/17/14 Status: Ordered metFORMIN 500 mg oral tablet See Instructions, TAKE ONE TABLET BY MOUTH TWICE A DAY NEEDS APPT PRIOR TO ADDITIONAL REFILLS, # 60 tabs, 0 Refill(s), Pharmacy: [facility] #[id number], TAKE ONE TABLET BY MOUTH TWICE A DAY; NEEDS APPT PRIOR TO ADDITIONAL REFILLS Start Date: 04/27/15 Status: Ordered Zocor 20 mg oral tablet See Instructions, TAKE ONE TABLET BY MOUTH EVERY NIGHT AT BEDTIME, # 90 tabs, 1 Refill(s), eRx: [facility] #[id number], TAKE ONE TABLET BY MOUTH EVERY NIGHT [...] Follow Up With: Where: When: Claus Pinzonens [address] [place] [address] Drive; [place] [address] Business (1) Within 3 to 5 days Comments: Follow Up With: Where: When: Navneet Sanjay[address]; [place] [address] Business (1) In 6 months [...] patient. Ordered: Office Visit Level 4 Est 75470
[2016-11-07] MEDS ORDERED: CEFAZOLIN 1 G in NORMAL SALINE 100 ML IV ONE (15:45)
[2016-11-07] MEDS ORDERED: NORMAL SALINE 1,000 ML IV ONE ×2 (15:45→17:30)
--- NOTE | 2016-11-07 15:50 | NUR ---
IVL IV STARTED X1 W/ BLOOD DRAW AND X1 SALINE FLUSH LOCK.
--- NOTE | 2016-11-07 15:53 | ERPDOC ---
Departure Disposition Decision Date: November 07, 2016 Disposition Decision Time: 16:33 Disposition: 01 DISCHARGED HOME, SELF-CARE Impression Impression Impression: Primary Impression: Open fracture of tuft of distal phalanx of finger Encounter type: initial encounter Qualified Codes: S62.639B - Displaced fracture of distal phalanx of unspecified finger, initial encounter for open fracture Additional Impressions: Flexion deformity of finger joint Laterality: left Qualified Codes: M21.242 - Flexion deformity, left finger joints Laceration of finger Encounter type: initial encounter Qualified Codes: S61.219A - Laceration without foreign body of unspecified finger without damage to nail, initial encounter Severity: Moderate Condition: Improved Seen By: Physician only Referrals: SARITA GUTIERREZ MD (Family) 1 Day Problems/Meds/Labs Reviewed?: Yes Medications reviewed and manag: Yes Follow up care ordered?: Yes Mental Status: Alert, Oriented HPI - General Medical General Stated Complaint: INJURED FINGERS Time Seen by Provider: 15:44 Source: patient (Patient presents to the ER after injuring his left hand in a Table Saw. Patient has injuries to the 1st, 2nd and 3rd digits of the left hand. 1st digit left hand has a injury thru the the PIP, with partial amputaion of the nail and Distal finger. Digit #2 has a 2-3 cm laceration to the anterior finger. Digit 3 has a injury karoline the PIP joint with possible extensor tendon damage. ), RN notes reviewed Exam Limitations: no limitations HPI - General Medical Occurred At: home Onset: Changing over time Duration: 1-3 hrs Pain Scale: Now & Worst: 10/10 Modifying Factors: IMPROVES WITH: other Associated Symptoms: malaise, DENIES: chest pain, cough, diaphoresis, fever/ chills, headaches, loss of appetite, nausea/vomiting, rash, seizure, shortness of breath, syncope, weakness Hx of Similar Symptoms: Yes Allergies: Coded Allergies: No Known Drug Allergies (Verified Allergy, Unknown, 11/07/16) Past History Past Medical History Metabolic: diabetes, hypercholesterolemia, hypertension Hx Echocardiogram: No Surgical History General: other Family History Family PMH: FOUND: other Vaccines Hx Influenza Vaccination: Yes (2008) Hx Pneumococcal Vaccination: No Social History Smoking Status: Unknown if ever smoked Substance Use Type: does not use Alcohol Intake: none Marital Status: Sexuality: female partner Housing: house Household Members: spouse Service: No Occupational Hazard: No Advance Directives: Yes Full Code Record Review Pertinent history updated: Yes Review of Systems Constitutional Constitutional: DENIES: chills, fever Eyes Lids/Accessories: DENIES: erythema, swelling ENMT Ears: DENIES: erythema, pain Balance: DENIES: ataxia, vertigo Sinuses: DENIES: congestion, rhinorrhea Mouth/Throat: DENIES: sore throat Cardiovascular Cardiac: DENIES: chest pain, dyspnea on exertion, orthopnea Rhythm/Rate: DENIES: tachycardia Pulmonary Respiratory: DENIES: cough, dyspnea, sputum GI Upper Abdomen: nausea, DENIES: pain, vomiting Lower Abdomen: DENIES: constipation, diarrhea, pain General: DENIES: dysuria Musculoskeletal General: joint pain, joint swelling, pain, see HPI, tenderness, DENIES: cramps , weakness Integumentary Skin: color change, see HPI, DENIES: itching, rash Neurological General: DENIES: ataxia, change in strength, headache, numbness, poor coordination, seizures, syncope, vertigo, weakness Psychiatric Psychiatric: DENIES: anxiety, depression, nervousness Hematologic/Lymphatic Hematologic/Lymphatic: DENIES: anemia Allergic/Immunological Allergic/Immunoligical: DENIES: sneezing All other Systems All Other Systems: Reviewed and Negative Physical Exam General General Nourishment: well nourished, well developed, appears stated age, no acute distress, adult General Body Habitus: well groomed Vitals and Pain First Documented Vital Signs Date Time Temp Pulse Resp B/P Pulse Ox O2 Delivery O2 Flow Rate FiO2 11/07/16 15:38 97.7 79 20 82/52 94 Room Air Weight: Kilograms: Height (feet): Height (inches): Triage Pain Scale: RN VS reviewed by Provider: Yes Eyes (brief) Eyes Brief: found: EOMI, PERRL ENMT (brief) ENMT Brief: FOUND: TM clear, TM good light reflex, mucosa moist, NOT FOUND: pharnyx erythema Neck (brief) Neck: FOUND: trachea midline, NOT FOUND: adenopathy, tenderness, tracheal deviation Respiratory (brief) Respiratory: FOUND: clear all agustin, equal bilaterally Cardiovascular (brief) Cardiac: FOUND: regular rate, regular rhythm Capillary Refill: <2 sec Pulses: all distal extremities, equal, strong Abdomen (brief) Abdominal Brief: FOUND: bowel normo active x4, soft, NOT FOUND: distended, tender Lymphatic (brief) Lymphatic Brief: NOT FOUND: adenopathy Musculoskeletal (brief) Musculoskeletal Brief: FOUND: deformity, loss of motion, other (Refer to HPI), tenderness, NOT FOUND: spasm Integumentary (brief) Integumentary Brief: FOUND: other (Refer to HPI), pink, warm Neurologic (brief) Neurological Brief: FOUND: CN w/o gross def to obs, ataxia, gait w/o gross def to obs, motor-no gross deficits, sensory-no gross deficits Psychiatric (brief) Psychiatric Brief: FOUND: alert, attentive, normal affect, oriented Differential Diagnoses Considering: Other Progress Results/Orders Orders Procedure Category Date Status Time Iv Lock (Ed Only) EDM 11/07/16 Transmitted 15:44 Cbc W/Auto LAB 11/07/16 Complete Diff-Reflex Manual Bmp - Basic Metabolic LAB 11/07/16 Complete Panel Cefazolin (Kefzol) PHA 11/07/16 Complete 15:45 Normal Saline (Normal PHA 11/07/16 Complete Saline Iv) 15:45 Ondansetron Inj PHA 11/07/16 Complete (Zofran) 16:00 EKG EKG 11/07/16 Taken Troponin I W LAB 11/07/16 Complete Hemolysis Index Tetanus,Diphth,A PHA 11/07/16 Complete Pertus (Tdap) (Adacel) 16:00 Hand Left 3 View RAD 11/07/16 Resulted Fentanyl (Fentanyl) PHA 11/07/16 Complete 16:15 Fentanyl (Fentanyl) PHA 11/07/16 Complete 17:30 Fentanyl (Fentanyl) PHA 11/07/16 Complete 17:30 Normal Saline (Normal PHA 11/07/16 Complete Saline Iv) 17:30 Lab Results Laboratory Tests Test 11/07/16 15:57 11/07/16 16:00 Glucometer 109mg/dL White Blood Count 10.1T/MM3 Red Blood Count 5.15M/MM3 Hemoglobin 16.1GM/DL Hematocrit 46.0% Mean Corpuscular Volume 89.3UM3 Mean Corpuscular Hemoglobin 31.3UUG Mean Corpuscular Hemoglobin Concent 35.0GM/DL RDW Standard Deviation 39.3FL Platelet Count 354T/MM3 Mean Platelet Volume 10.3UM3 Immature Granulocyte % (Auto) 0.1% Neutrophils (%) (Auto) 59.9% Lymphocytes (%) (Auto) 31.1% Monocytes (%) (Auto) 6.3% Eosinophils (%) (Auto) 2.0% Basophils (%) (Auto) 0.6% Absolute Immature Granulocyte (auto 0.01T/MM3 Absolute Neutrophils (auto) 6.1T/MM3 Absolute Lymphocytes (auto) 3.2T/MM3 Absolute Monocytes (auto) 0.6T/MM3 Absolute Eosinophils (auto) 0.2T/MM3 Absolute Basophils (auto) 0.1T/MM3 Turbidity < 20 Sodium Level 145MEQ/L Potassium Level 4.0MEQ/L Chloride Level 105MEQ/L Carbon Dioxide Level 26MEQ/L Anion Gap 14MEQ/L Blood Urea Nitrogen 17.0MG/DL Creatinine 1.1MG/DL Glomerular Filtration Rate Calc 68 BUN/Creatinine Ratio 16RATIO Glucose Level 117MG/DL Calculated Osmolality 282MOSM/KG Calcium Level 9.4MG/DL Icterus Index < 2 Troponin I < 0.012ng/ml Chemistry Specimen Hemolysis < 15 Medications Current ED Medications Cefazolin Sodium 1 g/Sodium Chloride 100 ml @ 200 mls/hr O ONCE IV Last administered on 11/07/16 16:25; Start 11/07/16 at 15:45; Stop 11/07/16 at 16:14; Status DC Sodium Chloride (Normal Saline IV) 1,000 ml @ 200 mls/hr Q5H ONCE IV Last administered on 11/07/16 15:52; Start 11/07/16 at 15:45; Stop 11/07/16 at 18:47; Status DC Ondansetron HCl (Zofran) 4 mg O ONCE IV Last administered on 11/07/16 16:01; Start 11/07/16 at 16:00; Stop 11/07/16 at 16:01; Status DC Diphtheria/ Tetanus/Acell Pertussis (Adacel) 0.5 ml O ONCE IM Last administered on 11/07/16 16:24; Start 11/07/16 at 16:00; Stop 11/07/16 at 16:01; Status DC Fentanyl (Fentanyl) 25 mcg O ONCE IV Last administered on 11/07/16 16:22; Start 11/07/16 at 16:15; Stop 11/07/16 at 16:16; Status DC Fentanyl (Fentanyl) 25 mcg O ONCE IV Last administered on 11/07/16 17:20; Start 11/07/16 at 17:30; Stop 11/07/16 at 17:31; Status DC Fentanyl 25 mcg 25 mcg O ONCE IV Last administered on 11/07/16 17:20; Start at 17:30; Stop 11/07/16 at 17:31; Status DC Sodium Chloride (Normal Saline IV) 1,000 ml @ 200 mls/hr Q5H ONCE IV Last administered on 11/07/16 17:22; Start 11/07/16 at 17:30; Stop 11/07/16 at 18:47; Status DC Progress Progress Patient resting comfortably following medications EKG EKG : Rate: 60-100 Rhythm: sinus [place]: normal QRS: normal Intervals: normal ST/T: non-specific changes Interpreted by: signing physician EKG ScImage/Picomm EKG interpreted in ScImage/Pic: No Consult/PCP Consult/PCP #1: Physician Contacted: [facility] / Dr. Haque Time Called: 16:33 Time of first response: 17:00 Type of discussion: Phone Consult/PCP Discussion Details Discussed patient examination, Labs, X-rays Transfer to ER, will be seen there Comments 17:05, I spoke with Dr. Perez, ER physician Will accept the patient to the ER Consult/PCP #2: Physician Contacted: Estrella Ji / Dr. Hernandez Time Called: 15:55 Time of first response: 16:00 Type of discussion: Phone Consult/PCP Discussion Details Discussed patient examination, x-rays pending Comments Transfer to Hand Surgeon in [place] Xray Xray : Reason for Exam: Left Hand trauma Xray: Hand L Interpretation: Abnormal, Reviewed Written Report LAURA CALDWELL DO November 07, 2016 15:53
[2016-11-07] MEDS ORDERED: ONDANSETRON 4mg/2ml INJECTION IV ONE (16:00)
[2016-11-07] MEDS ORDERED: TETANUS,DIPHTH,a PERTUS (Tdap) 0.5 ML VIAL IM ONE (16:00)
[2016-11-07] MEDS ORDERED: SIMV20TA6 PO (16:05)
[2016-11-07] MEDS ORDERED: METF500T4 PO (16:05)
[2016-11-07] MEDS ORDERED: LISI10TA7 PO (16:05)
[2016-11-07] MEDS ORDERED: ASPI-557 PO (16:05)
[2016-11-07] MEDS ORDERED: IBUP-1547 PO (16:09)
[2016-11-07] MEDS ORDERED: CYCL-375 PO (16:09)
[2016-11-07 16:12] LABS: BASOPHILS # (AUTO) 0.1 T/MM3 (0-0.2); BASOPHILS % (AUTO) 0.6 % (0-2); EOSINOPHILS # (AUTO) 0.2 T/MM3 (0-0.5); HGB - HEMOGLOBIN 16.1 GM/DL (13.5-17.5); IMMATURE GRANULOCYTE # (AUTO) 0.01 T/MM3 (0.00-0.03); IMMATURE GRANULOCYTE % (AUTO) 0.1 % (0.0-0.5); LYMPHOCYTES # (AUTO) 3.2 T/MM3 (1-4.8); LYMPHOCYTES % (AUTO) 31.1 % (23-45); MEAN CORPUSCULAR HGB 31.3 UUG (26-34); MEAN CORPUSCULAR VOLUME 89.3 UM3 (80-100); MEAN PLATELET VOLUME 10.3 UM3 (9.4-12.4); MONOCYTES # (AUTO) 0.6 T/MM3 (0-0.8); MONOCYTES % (AUTO) 6.3 % (0-9.0); NEUTROPHILS #(AUTO)-ABSOLUTE 6.1 T/MM3 (1.8-7.7); NEUTROPHILS % (AUTO) 59.9 % (33-66); RED BLOOD COUNT 5.15 M/MM3 (4.50-5.90); WBC - WHITE BLOOD COUNT 10.1 T/MM3 (4.5-11.0)
[2016-11-07] MEDS ORDERED: FENTANYL 100mcg/2ml INJECTION IV ONE ×3 (16:15→17:30)
[2016-11-07 16:17] LABS: ANION GAP 14 MEQ/L (5-15); BUN/CREATININE RATIO 16 RATIO (6-26); CALCIUM 9.4 MG/DL (8.4-10.2); CHLORIDE 105 MEQ/L (98-107); CO2 - CARBON DIOXIDE 26 MEQ/L (22-30); CREATININE 1.1 MG/DL (0.8-1.5); GLOMERULAR FILTRATION RATE 68; GLUCOSE 117 MG/DL (75-110); SODIUM 145 MEQ/L (134-144)
--- NOTE | 2016-11-07 16:26 | DI ---
Indication: ITS.REASON: accident with table saw, 1st, second and 3rd digits PROCEDURE: HAND LEFT 3 VIEW: Encounter: Initial Comparison: None Findings: There is a flexion deformity of the third digit PIP joint with extension of the DIP joint. There is cortical destruction of the distal tuft of the thumb. No other fractures are seen. Impression: Comminuted fracture of the distal phalanx of the thumb with flexion deformity of the third phalanx PIP joint. .
--- NOTE | 2016-11-07 16:30 | NUR ---
XRAY XRAY IN ROOM FOR PORTABLE W/ PT.
--- OUTSIDE RECORDS SUMMARY | 2016-11-07 17:00 | XMS REPORT | Continuity of Care Document ---
Author Author [facility] Organization [facility] Address Unknown Phone Unavailable Allergies Active Description [...] Status Pt. Type Provider Facility Loc./Unit Complaint [id number] 04/22/2013 15:20:00 04/22/2013 23 :59:59 CLS Outpatient
--- NOTE | 2016-11-07 17:45 | NUR ---
REPORT REPORT GIVEN TO LOIS MORENO AT [facility].
[2016-11-07 17:55] VITALS: BP 111/62; PULSE 78; RESP 20; TEMP 97.7; O2SAT 90
--- NOTE | 2016-11-07 17:55 | NUR ---
DEPART PT LEFT ER VIA CART W/ PT CARE XFERED TO [facility] FOR XFER TO [facility] FOR CONT CARE OF TRAUMATIC L HAND INJURY. PT ALERT, VS CHARTED W/ IV NS RUNNING 200CC/HR AND NO ACUTE DISTRESS AND W/O CHANGE.
== END 2016-11-07 17:55 | disposition home or self-care (01) ==
LOC: ED 15:38
DX: S62.522B Displaced fracture of distal phalanx of left thumb, initial encounter for open fracture (principal); S61.211A Laceration without foreign body of left index finger without damage to nail, initial encounter; M21.242 Flexion deformity, left finger joints; E11.9 Type 2 diabetes mellitus without complications; Z79.84 Long term (current) use of oral hypoglycemic drugs; W29.8XXA Contact with other powered hand tools and household machinery, initial encounter; Y93.89 Activity, other specified; Y92.009 Unspecified place in unspecified non-institutional (private) residence as the place of occurrence of the external cause; Y99.8 Other external cause status
CPT/HCPCS: 73130; 80048; 82948; 84484; 85025; 90471; 90715; 93005; 96361; 96365; 96372; 96375; 96376; 99284; J0690; J2405; J3010; J7030; J7050